=== PATIENT | female | born 1965 | race Caucasian/White ===

== ENCOUNTER 2017-12-27 13:55 | Emergency (ER) | payer OTHER ==
[~2017-12-27] VITALS: Ht 154.9 cm; Wt 108.9 kg
[2017-12-27] MEDS ORDERED: FORTAMET1000 MG (14:08)
[2017-12-27] MEDS ORDERED: COREG CR20 MG (14:09)
[2017-12-27] MEDS ORDERED: CARDURA XL4 MG (14:10)
[2017-12-27] MEDS ORDERED: ZOLOFT100 MG (14:10)
[2017-12-27] MEDS ORDERED: JANUVIA25 MG (14:10)
[2017-12-27] MEDS ORDERED: AMARYL (14:10)
[2017-12-27] MEDS ORDERED: NORVASC5 MG (14:10)
== END 2017-12-27 19:24 | disposition home or self-care (01) ==
LOC: ER 13:55
DX: M65.841 Other synovitis and tenosynovitis, right hand (principal); M25.532 Pain in left wrist

== ENCOUNTER 2020-05-16 10:30 | Emergency (ER) | payer OTHER ==
[~2020-05-16] VITALS: Ht 157.5 cm; Wt 108.9 kg
[~2020-05-16 10:30] MED LIST: AMARYL; CARDURA XL4 MG; COREG CR20 MG; FORTAMET1000 MG; JANUVIA25 MG; NORVASC5 MG; ZOLOFT100 MG
[2020-05-16] MEDS ORDERED: GLIMEPIRIDE4 MG (10:44)
[2020-05-16] MEDS ORDERED: AMOX1TAB5 PO (16:04)
[2020-05-16] MEDS ORDERED: KETO10TA2 PO (16:04)
== END 2020-05-16 16:14 | disposition home or self-care (01) ==
LOC: ER 10:30
DX: M25.562 Pain in left knee (principal); Z03.818 Encounter for observation for suspected exposure to other biological agents ruled out

== ENCOUNTER 2021-10-31 10:30 | Inpatient (IN) | payer OTHER ==
[~2021-10-31] VITALS: Ht 154.9 cm; Wt 104.3 kg
[~2021-10-31 10:30] MED LIST changes: +AMOX1TAB5 PO; +GLIMEPIRIDE4 MG; +KETO10TA2 PO
[2021-10-31] MEDS ORDERED: LANTUS (12:49)
[2021-10-31] MEDS ORDERED: HYDRALAZINE HC100 MG PO (12:49)
[2021-10-31] MEDS ORDERED: HORIZANT300 MG PO (12:51)
[2021-10-31] MEDS ORDERED: WELLBUTRIN XL300 MG PO (12:51)
[2021-10-31] MEDS ORDERED: SINGULAIR10 MG PO (12:52)
[2021-10-31] MEDS ORDERED: ALBUTEROL IH (12:52)
[2021-11-06] MEDS ORDERED: ZOLPIDEM TARTRA10 MG (09:06)
[2021-11-06] MEDS ORDERED: CARVEDILOL25 M1 (09:07)
[2021-11-06] MEDS ORDERED: BUTALB-ACETAMI1 EAC2 (09:07)
[2021-11-06] MEDS ORDERED: CANDESARTAN-HC1 EAC1 (09:07)
[2021-11-06] MEDS ORDERED: GABAPENTIN300 M2 (09:07)
[2021-11-06] MEDS ORDERED: PROAIR HFA8.5 GM (09:07)
[2021-11-06] MEDS ORDERED: LANTUS SOL100 UNIT/1 (09:08)
[2021-11-07] MEDS ORDERED: XARELTO10 MG PO (12:16)
[2021-11-07] MEDS ORDERED: OXYC1TAB9 PO (12:18)
== END 2021-11-07 20:32 | disposition home or self-care (01) | DRG 470 ==
LOC: O/R 11-05 08:30 → SURH 11-05 10:15 → SURG 11-05 17:11
PROVIDERS: ADMIT Orthopaedic Surgery; ATTEND Orthopaedic Surgery
PROC: 0SRC0J9 Replacement of Right Knee Joint with Synthetic Substitute, Cemented, Open Approach (ICD-10-PCS; principal; 2021-11-05 10:15)
DX: M17.11 Unilateral primary osteoarthritis, right knee (principal); D62 Acute posthemorrhagic anemia; M85.661 Other cyst of bone, right lower leg; I10 Essential (primary) hypertension; Z20.822 Contact with and (suspected) exposure to COVID-19